=== PATIENT | female | born 1960 | race Caucasian/White ===

== ENCOUNTER 2023-03-26 15:52 | Emergency (ER) | payer BC, SELFPAY ==
[2023-03-26 15:54] VITALS: BP 159/90; PULSE 84; RESP 18; TEMP 37.3; O2SAT 98; BMI 31.8
--- NOTE | 2023-03-26 16:41 | ED_ITS ---
HPI - URI/Sore Throat General Chief Complaint: Upper Respiratory Infection Stated Complaint: Flu Like Symptoms Time Seen by Provider: 03/26/23 16:41 Source: patient Limitations: no limitations History of Present Illness HPI Narrative: patient here with two documented episodes of high fever at home. She has some cough but mostly sore throat runny nose pressure in her sinuses. She had Covid in two thousand twenty-one and also had vaccines. She does not have any chest pain. Does not have nausea vomiting or diarrhea no gastrointestinal symptoms. No symptoms such as burning or frequency of urination or discomfort. It's mostly the sore throat sinus drainage and high fever. Related Data Allergies Allergy/AdvReac Type Severity Reaction Status Date / Time No Known Drug Allergies Allergy Verified 03/26/23 15:57 Exam Narrative Exam Narrative: awake alert does not appear ill or pulse ox a hundred percent with a normal respiratory rate. Lungs showed some scattered rhonchi but no bronchospasm. HEENT examination shows no focus of infection soft tissue swelling or airway obst ruction. She has no abdominal discomfort. Her trunk torso and extremities are benign. Cognition mentation and neurological examination are unremarkable. Constitutional Vital Signs, click to edit/add: Last Vital Signs Temp 99.1 F 03/26/23 15:54 Pulse 83 03/26/23 17:58 Resp 18 03/26/23 17:58 BP 160/80 H 03/26/23 17:58 Pulse Ox 100 03/26/23 17:58 O2 Del Method Room Air 03/26/23 15:54 Course Vital Signs Vital signs: Vital Signs Temperature 99.1 F 03/26/23 15:54 Pulse Rate 84 03/26/23 15:54 Respiratory Rate 18 03/26/23 15:54 Blood Pressure 159/90 H 03/26/23 15:54 Pulse Oximetry 98 03/26/23 15:54 Oxygen Delivery Method Room Air 03/26/23 15:54 Temperature 99.1 F 03/26/23 15:54 Pulse Rate 83 03/26/23 17:58 Respiratory Rate 18 03/26/23 17:58 Blood Pressure 160/80 H 03/26/23 17:58 Pulse Oximetry 100 03/26/23 17:58 Oxygen Delivery Method Room Air 03/26/23 15:54 MDM - URI/Sore Throat MDM Narrative Medical decision making narrative: patient underwent chest x-ray that appears to be normal per the radiologist. There is no hypoxemia. She is not real high risk and she's had symptoms for quite a while so I do not believe she needs antiviral therapy for her Covid. This was discussed with her. Lab Data Labs: Lab Results 03/26/23 Range/Units 16:05 Adenovirus (PCR) Not detected (NOT DETECTE) C. pneumoniae DNA (PCR) Not detected (NOT DETECTE) Coronavirus Type OC43 Not detected (NOT DETECTE) Coronavirus Type HKU1 Not detected (NOT DETECTE) Coronavirus Type 229E Not detected (NOT DETECTE) Coronavirus Type NL63 Not detected (NOT DETECTE) Human Metapneumovir PCR Not detected (NOT DETECTE) M. pneumoniae (PCR) Not detected (NOT DETECTE) Parainfluenza PCR Not detected (NOT DETECTE) Parainfluenza 2 (PCR) Not detected (NOT DETECTE) Parainfluenza 3 (PCR) Not detected (NOT DETECTE) Parainfluenza 4 (PCR) Not detected (NOT DETECTE) RSV (RT-PCR) Not detected (NOT DETECTE) Entero/Rhino (PCR) Not detected (NOT DETECTE) SARS-CoV-2 (PCR) Detected A (NOT DETECTE) Streptococcus Screen Negative Bordetella pertussis (PCR) Not detected (NOT DETECTE) B parapertussis DNA PCR Not detected (NOT DETECTE) Influenza Type A (PCR) Not detected (NOT DETECTE) Influenza Type B (PCR) Not detected (NOT DETECTE) Discharge Plan Discharge Chief Complaint: Upper Respiratory Infection Clinical Impression: COVID Patient Disposition: Home, Self-Care Time of Disposition Decision: 18:23 Additional Instructions: Tylenol or ibuprofen for fever., Stay hydrated. Follow up primary care practitioner. Return for difficulty breathing Stand Alone Forms: Portal Instructions Referrals: ARJUN BHANDARI [Primary Care Provider] - 1 week
--- NOTE | 2023-03-26 16:54 | XR_ITS ---
The [address] [address] Patient Name: ROBBIN NOEL MRN: [id number] date: 1960 Sex: F Assigned Patient Location: ER Current Patient Location: Accession/Order Number: [id number] Exam Date: 03/26/2023 17:05 Report Date: 03/26/2023 20:32 At the request of: MOJGAN LUDWIG Procedure: XR chest 1V ONE-VIEW CHEST RADIOGRAPH, 03/26/2023 5:05 PM EST COMPARISON: Chest, 12/17/2018. CLINICAL HISTORY: Low-grade fever today. Cough, sore throat and headaches for a day. FINDINGS: No acute cardiopulmonary disease. No pulmonary edema, pneumothorax, or pleural effusion. Normal heart size. No acute osseous abnormality. XR/XR chest 1V IMPRESSION: No acute abnormality identified. Electronically authenticated by: Parish DACOSTA Date: 03/26/2023 20:32
[2023-03-26 17:01] LABS: Adenovirus NOT DETECTED (NOT DETECTE); Coronavirus 229E NOT DETECTED (NOT DETECTE); Coronavirus HKU1 NOT DETECTED (NOT DETECTE); Coronavirus NL63 NOT DETECTED (NOT DETECTE)
[2023-03-26 17:02] LABS: Bordetella parapertussis NOT DETECTED (NOT DETECTE); Coronavirus OC43 NOT DETECTED (NOT DETECTE); Human Metapneumovirus NOT DETECTED (NOT DETECTE); Human Rhinovirus/Enterovirus NOT DETECTED (NOT DETECTE); Influenza A NOT DETECTED (NOT DETECTE); Influenza B NOT DETECTED (NOT DETECTE); Mycoplasma pneumoniae NOT DETECTED (NOT DETECTE); Parainfluenza Virus 1 NOT DETECTED (NOT DETECTE); Parainfluenza Virus 2 NOT DETECTED (NOT DETECTE); Parainfluenza Virus 3 NOT DETECTED (NOT DETECTE); Parainfluenza Virus 4 NOT DETECTED (NOT DETECTE); Respiratory Syncytial Virus NOT DETECTED (NOT DETECTE)
[2023-03-26 17:43] LABS: Internal Control Within Normal Limits; Strep A Antigen Screen Negative
[2023-03-26 17:53] LABS: SARS-CoV-2 DETECTED (NOT DETECTE)
[2023-03-26 17:58] VITALS: BP 160/80; PULSE 83; RESP 18; O2SAT 100
[2023-03-26 18:42] VITALS: TEMP 36.8
== END 2023-03-26 18:44 | disposition home or self-care (01) ==
PROVIDERS: Emergency Provider Emergency Medicine Emergency Medical Services; PCP Family Medicine
DX: U07.1 COVID-19 (principal); Z86.16 Personal history of COVID-19
CPT/HCPCS: 0202U; 71045; 87070; 87880; 99285